=== PATIENT | male | born 1955 | race Caucasian/White ===

== ENCOUNTER 2021-03-11 09:12 | Emergency (ER) | payer MEDICARE, MEDICAID ==
[2021-03-11] MEDS: Albuterol/Ipratropium 3.0-0.5 MG/3 ML Neb Soln NEB ONE (10:06)
[2021-03-11 10:26] LABS: CORONAVIRUS COVID-19 NAA NEGATIVE (NEGATIVE)
--- NOTE | 2021-03-11 10:31 | CR ---
[id number] RAD/RAD Chest PA or AP 1V EXAM: FRONTAL CHEST INDICATION: Chest pain with difficulty breathing. COMPARISON: None. DISCUSSION: Borderline heart size. Mild bilateral interstitial and airspace opacities with a central and basilar predominance could represent edema and/or infiltrates. Hyperinflation is compatible with chronic obstructive pulmonary disease. Possible trace right pleural effusion. IMPRESSION: 1. Mild bilateral interstitial and airspace edema and/or infiltrates. Wander Cuellar MD 03/11/21 [id number] Thank you for allowing us to participate in the care of your patient.
[2021-03-11] MEDS: fentaNYL 100 MCG/2 ML SDV IVPUSH ONE (10:34)
[2021-03-11] MEDS: Sodium Chloride 0.9% 1,000 ML IV ONE ×3 (10:34→11:11)
[2021-03-11] MEDS: Etomidate 2 MG/ML 10 ML SDV IVPUSH ONE (10:35)
[2021-03-11] MEDS: Ketamine 200 MG/20 ML MDV IVPUSH ONE ×3 (10:41→11:41)
[2021-03-11 10:46] LABS: CHLORIDE,CL 100 mmol/L (98-107); SODIUM,NA 140 mmol/L (136-145)
[2021-03-11 10:48] LABS: ANION GAP 10.4 mmol/L (5-15)
[2021-03-11] MEDS: Norepinephrine 4 MG in Dextrose 5% in Water 246 ML IV SCH ×2 (10:51)
[2021-03-11] MEDS: Lactated Ringers 1,000 ML IV ONE (10:54)
[2021-03-11] MEDS: Atropine 0.1 MG/ML 10 ML Syringe IVPUSH ONE (10:57)
[2021-03-11] MEDS: EPINEPHrine 1 MG/1 ML Amp IVPUSH ONE ×2 (10:58)
[2021-03-11] MEDS: Piperacillin/Tazobactam 3.375 GM in Sodium Chloride 0.9% 100 ML IV ONE (11:04)
--- NOTE | 2021-03-11 11:06 | EDM.PDOC ---
ED HPI GENERAL MEDICAL PROBLEM - General Chief Complaint: Respiratory Problem Stated Complaint: SOB Time Seen by Provider: 03/11/21 10:20 Source of Information: Reports: Patient, EMS, EMS Notes Reviewed, RN, RN Notes Reviewed History Limitations: Reports: Altered Mental Status, Respiratory Distress - History of Present Illness INITIAL COMMENTS - FREE TEXT/NARRATIVE: Pt is a 66 year old male who presents to ER per [facility] with respiratory distress. [facility] care staff report the patient began this morning with raspy, wet breathing, as well as low oxygen saturation and increased respirations. Patient does have a hx of COPD, as well as psychiatric history. Onset: Today ED ROS GENERAL - Review of Systems Review Of Systems: Comprehensive ROS is negative, except as noted in HPI. ED EXAM, GENERAL - Physical Exam Exam: See Below Exam Limited By: No Limitations General Appearance: Lethargic, Moderate Distress, Cachetic Eye Exam: Bilateral Eye: EOMI, Normal Inspection Ears: Normal External Exam, Hearing Grossly Normal Nose: Normal Inspection Throat/Mouth: Normal Lips, Other (thick sputum/secretions) Head: Atraumatic, Normocephalic Neck: Normal Inspection Respiratory/Chest: Respiratory Distress, Rhonchi (throughout), Accessory Muscle Use Cardiovascular: Normal Peripheral Pulses, No Edema, No Gallop, No JVD, No Murmur, No Rub, Tachycardia Peripheral Pulses: 2+: Radial (L), Radial (R) GI/Abdominal: Normal Bowel Sounds, Soft, Non-Tender (Male) Exam: Deferred Rectal (Males) Exam: Deferred Back Exam: Normal Inspection, Decreased Range of Motion Extremities: Normal Inspection, Limited Range of Motion Neurological: Disoriented, Slow to Respond Skin Exam: Warm, Dry, Intact, Normal Color, No Rash Lymphatic: No Adenopathy ED RESPIRATORY PROCEDURES - Endotracheal Intubation Time of Intubation: 10:37 ET Intubation Indication: Respiratory Failure, Airway Protection Preparation: Suction, Balloon Tested, BVM Set Up Airway Assessment: Profuse Secretions Pre-Oxygenation: 100% FiO2 Anesthesia Meds: Etomidate, Fentanyl, Ketamine Placement: Orotracheal, Cuffed, Uncomplicated Placement Cords Visualized: Yes ETT Size In mm: 8 Number of Attempts: 1 Confirmed By: Bilateral Breath Sounds, Chest Xray Tube Secured By: By Provider Course - Vital Signs Last Recorded V/S: Last Vital Signs Temp 98.0 F 03/11/21 10:08 Pulse 108 H 03/11/21 10:08 Resp 30 H 03/11/21 10:08 BP 130/92 H 03/11/21 10:08 Pulse Ox 81 L 03/11/21 10:08 - Orders/Labs/Meds Orders: Active Orders 24 hr Category Date Time Status RT Aerosol Therapy [RC] ASDIRECTED Care 03/11/21 09:44 Active CULTURE BLOOD [BC] Stat Lab 03/11/21 10:07 Received CULTURE BLOOD [BC] Stat Lab 03/11/21 10:13 Received REFLEX LACTIC ACID YES OR NO [CHEM] Routine Lab 03/11/21 11:06 Received fentaNYL [Sublimaze] Med 03/11/21 10:34 Once 100 mcg IVPUSH ONETIME ONE Blood Culture x2 Reflex Set [OM.PC] Stat Oth 03/11/21 09:38 Ordered Labs: Laboratory Tests 03/11/21 03/11/21 03/11/21 Range/Units 09:40 10:07 10:07 WBC 12.2 H (4.0-10.0) x10^3/uL RBC 4.72 (4.5-6.0) x10^6/uL Hgb 14.4 (14.0-18.0) g/dL Hct 44.3 (40.0-52.0) % MCV 93.9 H (78.0-93.0) fL MCH 30.5 (26.0-32.0) pg MCHC 32.5 (32.0-36.0) g/dL RDW Coeff of Mily 13.3 (10.0-15.0) % Plt Count 224 (130-400) x10^3/uL Immature Gran % (Auto) 0.10 (0.00-0.43) % Neut % (Auto) 87.0 H (50.0-80.0) % Lymph % (Auto) 4.8 L (25.0-50.0) % [place] % (Auto) 7.9 (2.0-11.0) % Eos % (Auto) 0.0 (0.0-4.0) % Baso % (Auto) 0.2 (0.2-1.2) % Neut # (Auto) 10.6 H (1.8-7.7) x10^3/uL Lymph # (Auto) 0.6 L (1.0-4.8) x10^3/uL [place] # (Auto) 1.0 H (0.0-0.8) x10^3/uL Eos # (Auto) 0.0 (0.0-0.5) x10^3/uL Baso # (Auto) 0.0 (0.0-0.2) x10^3/uL Immature Gran # (Auto) 0.01 (0.00-0.07) x10^3/uL POC ABG pH POC ABG pCO2 POC ABG pO2 POC ABG HCO3 POC ABG Total CO2 POC ABG O2 Sat POC ABG Base Excess POC FiO2 POC Blood Gas Comment Sodium 140 (136-145) mmol/L Potassium 4.4 (3.5-5.1) mmol/L Chloride 100 (98-107) mmol/L Carbon Dioxide 34 H (21-32) mmol/L Anion Gap 10.4 (5-15) mmol/L BUN 19 H (7-18) mg/dL Creatinine 0.8 (0.70-1.30) mg/dL Est Cr Clr Drug Dosing TNP Estimated GFR (MDRD) > 60 Glucose 126 H (70-99) mg/dL Lactic Acid (0.4-2.0) mmol/L Calcium 9.3 (8.5-10.1) mg/dL Corrected Calcium 9.7 (8.5-10.1) mg/dL Total Bilirubin 0.4 (0.2-1.0) mg/dL AST 28 (15-37) U/L ALT 19 (16-63) U/L Alkaline Phosphatase 90 (46-116) U/L C-Reactive Protein 11.1 H (<=0.9) mg/dL NT-Pro-B Natriuret Pep 1843 H (<=125) pg/mL Total Protein 8.6 H (6.4-8.2) g/dL Albumin 3.5 (3.4-5.0) g/dL Globulin 5.1 Albumin/Globulin Ratio 0.69 Urine Color (YELLOW) Urine Appearance (CLEAR) Urine pH (5.0-8.0) Ur Specific [place] Urine Protein (NEGATIVE) mg/dL Urine Glucose (UA) (NEGATIVE) mg/dL Urine Ketones (NEGATIVE) mg/dL Urine Occult Blood (NEGATIVE) Urine Nitrite (NEGATIVE) Urine Bilirubin (NEGATIVE) Urine Urobilinogen (0.2) EU/dL Ur Leukocyte Esterase (NEGATIVE) Urine RBC (NOT SEEN) /HPF Urine WBC (NOT SEEN) /HPF Urine Bacteria (NOT SEEN) /HPF Urine Mucus (NOT SEEN) /LPF Influenza Type A RNA Negative (NEGATIVE) Influenza Type B RNA Negative (NEGATIVE) SARS-CoV-2 RNA (SAMIRA) Negative (NEGATIVE) 03/11/21 03/11/21 03/11/21 Range/Units 10:07 11:10 11:15 WBC (4.0-10.0) x10^3/uL RBC (4.5-6.0) x10^6/uL Hgb (14.0-18.0) g/dL Hct (40.0-52.0) % MCV (78.0-93.0) fL MCH (26.0-32.0) pg MCHC (32.0-36.0) g/dL RDW Coeff of Mily (10.0-15.0) % Plt Count (130-400) x10^3/uL Immature Gran % (Auto) (0.00-0.43) % Neut % (Auto) (50.0-80.0) % Lymph % (Auto) (25.0-50.0) % [place] % (Auto) (2.0-11.0) % Eos % (Auto) (0.0-4.0) % Baso % (Auto) (0.2-1.2) % Neut # (Auto) (1.8-7.7) x10^3/uL Lymph # (Auto) (1.0-4.8) x10^3/uL [place] # (Auto) (0.0-0.8) x10^3/uL Eos # (Auto) (0.0-0.5) x10^3/uL Baso # (Auto) (0.0-0.2) x10^3/uL Immature Gran # (Auto) (0.00-0.07) x10^3/uL POC ABG pH Cancelled POC ABG pCO2 Cancelled POC ABG pO2 Cancelled POC ABG HCO3 Cancelled POC ABG Total CO2 Cancelled POC ABG O2 Sat Cancelled POC ABG Base Excess Cancelled POC FiO2 Cancelled POC Blood Gas Comment Cancelled Sodium (136-145) mmol/L Potassium (3.5-5.1) mmol/L Chloride (98-107) mmol/L Carbon Dioxide (21-32) mmol/L Anion Gap (5-15) mmol/L BUN (7-18) mg/dL Creatinine (0.70-1.30) mg/dL Est Cr Clr Drug Dosing Estimated GFR (MDRD) Glucose (70-99) mg/dL Lactic Acid 3.0 H* (0.4-2.0) mmol/L Calcium (8.5-10.1) mg/dL Corrected Calcium (8.5-10.1) mg/dL Total Bilirubin (0.2-1.0) mg/dL AST (15-37) U/L ALT (16-63) U/L Alkaline Phosphatase (46-116) U/L C-Reactive Protein (<=0.9) mg/dL NT-Pro-B Natriuret Pep (<=125) pg/mL Total Protein (6.4-8.2) g/dL Albumin (3.4-5.0) g/dL Globulin Albumin/Globulin Ratio Urine Color Yellow (YELLOW) Urine Appearance Clear (CLEAR) Urine pH 5.5 (5.0-8.0) Ur Specific [place] >=1.030 Urine Protein 100 H (NEGATIVE) mg/dL Urine Glucose (UA) Negative (NEGATIVE) mg/dL Urine Ketones Negative (NEGATIVE) mg/dL Urine Occult Blood Trace-lysed H (NEGATIVE) Urine Nitrite Negative (NEGATIVE) Urine Bilirubin Negative (NEGATIVE) Urine Urobilinogen 0.2 (0.2) EU/dL Ur Leukocyte Esterase Negative (NEGATIVE) Urine RBC 0-5 (NOT SEEN) /HPF Urine WBC 0-5 (NOT SEEN) /HPF Urine Bacteria Rare (NOT SEEN) /HPF Urine Mucus Few H (NOT SEEN) /LPF Influenza Type A RNA (NEGATIVE) Influenza Type B RNA (NEGATIVE) SARS-CoV-2 RNA (SAMIRA) (NEGATIVE) 03/11/21 03/11/21 Range/Units 11:17 11:47 WBC (4.0-10.0) x10^3/uL RBC (4.5-6.0) x10^6/uL Hgb (14.0-18.0) g/dL Hct (40.0-52.0) % MCV (78.0-93.0) fL MCH (26.0-32.0) pg MCHC (32.0-36.0) g/dL RDW Coeff of Mily (10.0-15.0) % Plt Count (130-400) x10^3/uL Immature Gran % (Auto) (0.00-0.43) % Neut % (Auto) (50.0-80.0) % Lymph % (Auto) (25.0-50.0) % [place] % (Auto) (2.0-11.0) % Eos % (Auto) (0.0-4.0) % Baso % (Auto) (0.2-1.2) % Neut # (Auto) (1.8-7.7) x10^3/uL Lymph # (Auto) (1.0-4.8) x10^3/uL [place] # (Auto) (0.0-0.8) x10^3/uL Eos # (Auto) (0.0-0.5) x10^3/uL Baso # (Auto) (0.0-0.2) x10^3/uL Immature Gran # (Auto) (0.00-0.07) x10^3/uL POC ABG pH 7.12 L* 7.19 L* POC ABG pCO2 89 H* 75 H* POC ABG pO2 168 H 82 L POC ABG HCO3 28.6 H 28.5 H POC ABG Total CO2 30.1 H 29.7 H POC ABG O2 Sat 98.7 H 92.1 L POC ABG Base Excess -1 0 POC FiO2 80 80 POC Blood Gas Comment Sodium (136-145) mmol/L Potassium (3.5-5.1) mmol/L Chloride (98-107) mmol/L Carbon Dioxide (21-32) mmol/L Anion Gap (5-15) mmol/L BUN (7-18) mg/dL Creatinine (0.70-1.30) mg/dL Est Cr Clr Drug Dosing Estimated GFR (MDRD) Glucose (70-99) mg/dL Lactic Acid (0.4-2.0) mmol/L Calcium (8.5-10.1) mg/dL Corrected Calcium (8.5-10.1) mg/dL Total Bilirubin (0.2-1.0) mg/dL AST (15-37) U/L ALT (16-63) U/L Alkaline Phosphatase (46-116) U/L C-Reactive Protein (<=0.9) mg/dL NT-Pro-B Natriuret Pep (<=125) pg/mL Total Protein (6.4-8.2) g/dL Albumin (3.4-5.0) g/dL Globulin Albumin/Globulin Ratio Urine Color (YELLOW) Urine Appearance (CLEAR) Urine pH (5.0-8.0) Ur Specific [place] Urine Protein (NEGATIVE) mg/dL Urine Glucose (UA) (NEGATIVE) mg/dL Urine Ketones (NEGATIVE) mg/dL Urine Occult Blood (NEGATIVE) Urine Nitrite (NEGATIVE) Urine Bilirubin (NEGATIVE) Urine Urobilinogen (0.2) EU/dL Ur Leukocyte Esterase (NEGATIVE) Urine RBC (NOT SEEN) /HPF Urine WBC (NOT SEEN) /HPF Urine Bacteria (NOT SEEN) /HPF Urine Mucus (NOT SEEN) /LPF Influenza Type A RNA (NEGATIVE) Influenza Type B RNA (NEGATIVE) SARS-CoV-2 RNA (SAMIRA) (NEGATIVE) Meds: Medications Discontinued Medications Generic Name Dose Route Start Last Admin Trade Name Skipq PRN Reason Stop Dose Admin Albuterol Confirm 03/11/21 11:50 Take Home: Albuterol 18 Gm Inhaler, 1 Inhaler Pack Administered 03/11/21 11:51 Dose 1 packet .ROUTE .STK-MED ONE Albuterol Confirm 03/11/21 11:51 Albuterol 0.083% 2.5 Mg/3 Ml Neb Soln Administered 03/11/21 11:52 Dose 2.5 mg .ROUTE .STK-MED ONE Albuterol/Ipratropium 3 ml 03/11/21 09:43 03/11/21 10:06 Albuterol/Ipratropium 3.0-0.5 Mg/3 Ml Neb Soln NEB 03/11/21 09:44 3 ml ONETIME ONE Administration Ketamine HCl Confirm 03/11/21 11:35 Ketamine 200 Mg/20 Ml Mdv Administered 03/11/21 11:36 Dose 200 mg .ROUTE .STK-MED ONE Piperacillin Sod/Tazobactam Sod Confirm 03/11/21 10:55 Piperacillin/Tazobactam 3.375 Gm Vial Administered 03/11/21 10:56 Dose 3.375 gm .ROUTE .STK-MED ONE Rocuronium [place] Confirm 03/11/21 10:22 Rocuronium 50 Mg/5 Ml Vial Administered 03/11/21 10:23 Dose 50 mg .ROUTE .STK-MED ONE Succinylcholine Chloride Confirm 03/11/21 10:21 Succinylcholine 200 Mg/10 Ml Mdv Administered 03/11/21 10:22 Dose 200 mg .ROUTE .STK-MED ONE Vancomycin HCl Confirm 03/11/21 11:09 Vancomycin 1 Gm Sdv Administered 03/11/21 11:10 Dose 1 gm .ROUTE .STK-MED ONE Departure - Departure Time of Disposition: 11:05 Disposition: DC/Tfer to [facility] Condition: Serious Clinical Impression: Respiratory failure Qualifiers: Chronicity: acute Respiratory failure complication: unspecified whether with hypoxia or hypercapnia Qualified Code(s): J96.00 - Acute respiratory failure, unspecified whether with hypoxia or hypercapnia - Discharge Information *PRESCRIPTION DRUG MONITORING PROGRAM REVIEWED*: No *COPY OF PRESCRIPTION DRUG MONITORING REPORT IN PATIENT BESSIE: No Forms: ED Department Discharge, Interfacility Transfer [facility] Sepsis Event Note (ED) - Evaluation Sepsis Screening Result: Possible Sepsis Risk - Focused Exam Vital Signs: Vital Signs Temp Pulse Resp BP Pulse Ox 03/11/21 10:08 98.0 F 108 H 30 H 130/92 H 81 L - My Orders Last 24 Hours: My Active Orders 03/11/21 09:38 Blood Culture x2 Reflex Set [OM.PC] Stat 03/11/21 09:44 RT Aerosol Therapy [RC] ASDIRECTED 03/11/21 10:07 CULTURE BLOOD [BC] Stat 03/11/21 10:13 CULTURE BLOOD [BC] Stat 03/11/21 10:34 fentaNYL [Sublimaze] 100 mcg IVPUSH ONETIME ONE 03/11/21 11:06 REFLEX LACTIC ACID YES OR NO [CHEM] Routine - Assessment/Plan Last 24 Hours: My Active Orders 03/11/21 09:38 Blood Culture x2 Reflex Set [OM.PC] Stat 03/11/21 09:44 RT Aerosol Therapy [RC] ASDIRECTED 03/11/21 10:07 CULTURE BLOOD [BC] Stat 08/30/21 10:13 CULTURE BLOOD [BC] Stat 03/11/21 10:34 fentaNYL [Sublimaze] 100 mcg IVPUSH ONETIME ONE 03/11/21 11:06 REFLEX LACTIC ACID YES OR NO [CHEM] Routine
--- NOTE | 2021-03-11 11:53 | CR ---
[id number] RAD/RAD Chest PA or AP 1V EXAM: RAD Chest PA or AP 1V INDICATION: POST INTUBATION AND NG TUBE PLACEMENT. COMPARISON: Earlier today. DISCUSSION/IMPRESSION: NG tube has been placed. Tip projects over the left upper quadrant. This is likely near the gastroesophageal junction. Tube could be inserted at least 6 cm for placement in the stomach body as clinically warranted. Endotracheal tube in place. Tip projects approximately 12 mm superior to the carlene. Tube could be retracted 30-40 mm for placement in the mid trachea as clinically warranted. No change in appearance of the lungs or mediastinal silhouette compared to the prior examination from earlier today. Matias Doyle MD 03/11/21 [id number] Thank you for allowing us to participate in the care of your patient.
[2021-03-11] MEDS: Albuterol 0.083% 2.5 MG/3 ML Neb Soln NEB ONE (11:55)
--- NOTE | 2021-03-11 12:16 | CR ---
[id number] RAD/RAD Chest PA or AP 1V EXAM: RAD Chest PA or AP 1V INDICATION: ADJUSTED ET TUBE. COMPARISON: Earlier today. DISCUSSION/IMPRESSION: Endotracheal tube has been repositioned. Tip is now located approximately 45 mm above the carlene. No other significant change. Matias Doyle MD 03/11/21 [id number] Thank you for allowing us to participate in the care of your patient.
[2021-03-11] MEDS: Rocuronium 50 MG/5 ML Vial ONE (13:20)
[2021-03-11] MEDS: Vancomycin 1 GM SDV ONE (13:21)
[2021-03-11] MEDS: Take Home: Albuterol 18 GM Inhaler, 1 Inhaler Pack ONE (13:22)
[2021-03-11] MEDS: Succinylcholine 200 MG/10 ML MDV ONE (13:23)
[2021-03-11] MEDS: Albuterol 0.083% 2.5 MG/3 ML Neb Soln ONE (13:24)
[2021-03-11] MEDS: Ketamine 200 MG/20 ML MDV ONE (13:29)
[2021-03-11] MEDS ORDERED: Etomidate 2 MG/ML 10 ML SDV ONE (14:00)
[2021-03-11] MEDS ORDERED: fentaNYL 100 MCG/2 ML SDV ONE (14:00)
[2021-03-11] MEDS ORDERED: Ketamine 200 MG/20 ML MDV ONE (14:00)
== END 2021-03-11 12:09 | disposition short-term general hospital (02) ==
LOC: VM.ED 09:12
DX: J96.00 Acute respiratory failure, unspecified whether with hypoxia or hypercapnia (principal); Z20.822 Contact with and (suspected) exposure to COVID-19
CPT/HCPCS: 0240U; 31500; 36415; 36600; 43752; 51702; 71045; 80053; 81001; 82803; 83605; 83880; 85025; 86140; 87040; 96365; 96368; 96375; 99285; 99285-25; A9270-GY; J0171; J0330; J0461; J2543; J3010; J3370; J3490; J7030; J7050; J7060; J7120; J7613-GY; J7620-GY